=== PATIENT | male | born 1965 | race Two or more races ===

== ENCOUNTER 2021-07-04 02:38 | Emergency (ER) | payer OTHER ==
[~2021-07-04] VITALS: Ht 188 cm; Wt 104.3 kg
[2021-07-04] MEDS ORDERED: SYNTHROID75 MCG (02:48)
[2021-07-04] MEDS ORDERED: LOSARTAN POTASS50 MG (02:48)
[2021-07-04] MEDS ORDERED: WELLBUTRIN XL300 MG (02:48)
[2021-07-04] MEDS ORDERED: KETO10TA2 PO (08:23)
== END 2021-07-04 08:43 | disposition home or self-care (01) ==
LOC: ER 02:38
DX: S00.03XA Contusion of scalp, initial encounter (principal); S20.224A Contusion of middle back wall of thorax, initial encounter; M54.59 Other low back pain; Y04.2XXA Assault by strike against or bumped into by another person, initial encounter; Y93.89 Activity, other specified; Y92.414 Local residential or business street as the place of occurrence of the external cause; Y99.8 Other external cause status

== ENCOUNTER 2023-05-14 14:22 | Emergency (ER) | payer OTHER ==
[~2023-05-14] VITALS: Ht 177.8 cm; Wt 91.2 kg
[~2023-05-14 14:22] MED LIST: KETO10TA2 PO; LOSARTAN POTASS50 MG; SYNTHROID75 MCG; WELLBUTRIN XL300 MG
== END 2023-05-14 15:45 | disposition home or self-care (01) ==
LOC: ER 14:22
DX: F41.0 Panic disorder [episodic paroxysmal anxiety] (principal); F32.89 Other specified depressive episodes; E03.9 Hypothyroidism, unspecified; I10 Essential (primary) hypertension
CPT/HCPCS: 96372; 99284; J3490

== ENCOUNTER 2023-08-04 11:40 | Emergency (ER) | payer OTHER ==
[~2023-08-04] VITALS: Ht 177.8 cm; Wt 93.0 kg
[2023-08-04] MEDS ORDERED: VISTARIL50 MG PO (11:53)
== END 2023-08-04 15:14 | disposition home or self-care (01) ==
LOC: ER 11:40
DX: F41.8 Other specified anxiety disorders (principal)